=== PATIENT | female | born 1990 | race American Indian/Alaskan Native ===

== ENCOUNTER 2020-03-07 06:09 | Emergency (ER) | payer MEDICARE ==
[2020-03-07 06:40] VITALS: BP 115/80
[2020-03-07 07:10] LABS: Bacteria,Urine 1+ /HPF (Negative); Bilirubin,Urine NEG (Negative); Blood,Urine NEG (Negative); Color,Urine Yellow (Yellow); Mucus,Urine 1+ /HPF; Protein,Urine <15 mg/dL mg/dL (Negative); Urobilinogen,Urine < 2.0 mg/dL (<2.0)
[2020-03-07 07:11] LABS: HCG Qualitative,Urine Negative (Negative)
--- NOTE | 2020-03-07 07:34 | Emergency Department Report ---
ED Abdominal Pain HPI - General Chief Complaint: Abdominal Pain Stated Complaint: ABD PAIN Time Seen by Provider: 03/07/20 07:26 Source: patient Mode of arrival: Ambulatory Limitations: No Limitations - History of Present Illness Initial Comments: 29-year-old female with no significant past medical history presents to the hospital with complaints of lower abdominal pain x1 week. Patient having intermittent supra cramping abdominal pain without aggravating or alleviating factors. Pain 610 at its worst. Patient denies associated symptoms including nausea, vomiting, diarrhea, fever, dysuria, or vaginal bleeding. She did have some mild vaginal discharge that has improved. She is 62 active with one partner, no condom use, last sexual intercourse was last night. - Related Data Previous Rx's Medication Instructions Recorded Last Taken Type Ibuprofen [Motrin] 800 mg PO Q8HR PRN #20 tablet 03/07/20 Unknown Rx Allergies Allergy/AdvReac Type Severity Reaction Status Date / Time No Known Allergies Allergy Unverified 03/07/20 06:48 ED Review of Systems ROS: Stated complaint: ABD PAIN Other details as noted in HPI Comment: All other systems reviewed and negative ED Past Medical Hx - Past Medical History Previous Medical History?: No - Surgical History Past Surgical History?: No - Social History Smoking Status: Never Smoker Substance Use Type: None - Medications Home Medications: Home Medications Medication Instructions Recorded Confirmed Last Taken Type Ibuprofen [Motrin] 800 mg PO Q8HR PRN #20 tablet 03/07/20 Unknown Rx ED Physical Exam - General Limitations: No Limitations - Other Other exam information: General: No acute distress Head: Atraumatic Eyes: normal appearance ENT: Moist mucous membranes Neck: Normal appearance, no midline tenderness Chest: Clear to auscultation bilaterally CV: Regular rate and rhythm Abdomen: Soft, normal bowel sounds, mild superpubic tenderness, nondistended, no rebound or guarding : No external lesions, no vaginal discharge, nulliparous cervix, no CVA or adnexal tenderness, cultures obtained and sent Back: Normal inspection Extremity: Normal inspection, full range of motion Neuro: Alert O x 3, no facial asymmetry, speech clear, no gross motor sensory deficit Psych: Appropriate behavior Skin: No rash ED Course Vital Signs 03/07/20 06:36 Temperature 98.5 F Pulse Rate 84 Respiratory 18 Rate Blood Pressure 115/80 O2 Sat by Pulse 98 Oximetry ED Medical Decision Making - Lab Data Lab Results 03/07/20 Range/Units Unknown Urine Color Yellow (Yellow) Urine Turbidity Clear (Clear) Urine pH 6.0 (5.0-7.0) Ur Specific [place] 1.027 (1.003-1.030) Urine Protein <15 mg/dl (Negative) mg/dL Urine Glucose (UA) Neg (Negative) mg/dL Urine Ketones Neg (Negative) mg/dL Urine Blood Neg (Negative) Urine Nitrite Neg (Negative) Urine Bilirubin Neg (Negative) Urine Urobilinogen < 2.0 (<2.0) mg/dL Ur Leukocyte Esterase Neg (Negative) Urine WBC (Auto) 2.0 (0.0-6.0) /HPF Urine RBC (Auto) 1.0 (0.0-6.0) /HPF U Epithel Cells (Auto) 4.0 (0-13.0) /HPF Urine Bacteria (Auto) 1+ (Negative) /HPF Urine Mucus 1+ /HPF Urine HCG, Qual Negative (Negative) Gonorrhea, chlamydia, trichomonas negative - Medical Decision Making Patient presents with 1 week of intermittent crampy suprapubic abdominal pain without distress in the ED. Minimum suprapubic pain on examination. Vital signs, UA, urine , and vaginal exam unremarkable. GC chlamydia pending however, patient is in a monogamous relationship. Patient recommend to follow- up with [facility] for further work-up and evaluation since she is not current with her Pap smears as well Critical Care Time: No Critical care attestation.: If time is entered above; I have spent that time in minutes in the direct care of this critically ill patient, excluding procedure time. ED Disposition Clinical Impression: Pelvic pain Disposition: DC-01 TO HOME OR SELFCARE Is pt being admited?: No Does the pt Need Aspirin: No Condition: Stable Instructions: Abdominal Pain (ED), Pelvic Pain, Female, [id number] Additional Instructions: Take the medication as prescribed. Follow-up with your doctor or doctor/clinic provided. Return if symptoms worsen as indicated by your discharge instructions. Your gonorrhea and Chlamydia tests have been sent and take 2-3 days to result. You may obtain your results by going to medical records with your photo ID or your follow-up physician may request the results be sent to his or her office with your written permission. Prescriptions: Ibuprofen [Motrin] 800 mg PO Q8HR PRN #20 tablet PRN Reason: Pain , Severe (7-10) Referrals: PRIMARY CARE, [Primary Care Provider] - 3-5 Days [facility] [Provider Group] - 3-5 Days Time of Disposition: 08:31
== END 2020-03-07 09:06 | disposition home or self-care (01) ==
LOC: ED 06:09
DX: R10.2 Pelvic and perineal pain (principal); Z79.1 Long term (current) use of non-steroidal anti-inflammatories (NSAID)
CPT/HCPCS: 81001; 81025; 87210; 87591

== ENCOUNTER 2021-03-02 08:26 | Emergency (ER) | payer MEDICARE ==
[2021-03-02 10:54] LABS: Basophils % (Auto) 0.5 % (0.0-1.8); Eosinophils % (Auto) 0.1 % (0.0-4.3); Hematocrit 40.9 % (30.3-42.9); Hemoglobin 13.2 gm/dl (10.1-14.3); Lymphocytes # (Auto) 0.8 K/mm3 (1.2-5.4); Lymphocytes % (Auto) 25.3 % (13.4-35.0); Mean Corpuscular HGB Conc 32 % (30-34); Mean Corpuscular Volume 84 fl (79-97); Monocytes # (Auto) 0.3 K/mm3 (0.0-0.8); Monocytes % (Auto) 8.5 % (0.0-7.3); Platelet Count 226 K/mm3 (140-440); Red Blood Count 4.87 M/mm3 (3.65-5.03); Red Cell Distribution Width 14.9 % (13.2-15.2)
[2021-03-02 11:03] LABS: BUN/Creatinine Ratio 10; Blood Urea Nitrogen 8 mg/dL (7-17); Hemolysis Index 10
[2021-03-02 11:16] VITALS: BP 111/75
--- NOTE | 2021-03-02 11:19 | Emergency Department Report ---
ED General Adult HPI - General Chief complaint: Weakness Stated complaint: DONT FEEL GOOD Time Seen by Provider: 03/02/21 09:22 Source: patient Mode of arrival: Ambulatory Limitations: No Limitations - History of Present Illness Initial comments: 30-year-old -Gabonese female presents to the emergency room stating she just does not feel good x1 week. She denies any fever admits to chills no nausea no vomiting. She does report a decrease in appetite and a cough. She states that she took an ibuprofen on Tuesday. She is not vaccinated for Covid but states she is got vaccinated for flu. She denies any chest pain or shortness of breath. She reports she has been around someone's been sick which is her boyfriend. She denies any sore throat no nasal congestion or runny nose no headache. She just states she feels weak and does not feel good. She denies any past medical history currently takes no meds. Her last menstrual period is 02/22/2021 and is currently on her cycle. Onset/Timin -: week(s) Severity scale (0 -10): 4 Quality: other (Just does not feel good) Consistency: constant Improves with: none Worsens with: movement Associated Symptoms: cough, loss of appetite, malaise. denies: confusion, chest pain, diaphoresis, fever/chills, headaches, nausea/vomiting Treatments Prior to Arrival: none - Related Data Previous Rx's Medication Instructions Recorded Last Taken Type Ibuprofen [Motrin] 800 mg PO Q8HR PRN #20 tablet 03/07/20 Unknown Rx Allergies Allergy/AdvReac Type Severity Reaction Status Date / Time No Known Allergies Allergy Verified 03/02/21 08:34 ED Review of Systems ROS: Stated complaint: DONT FEEL GOOD Other details as noted in HPI Comment: All other systems reviewed and negative ED Past Medical Hx - Social History Smoking Status: Never Smoker Substance Use Type: None - Medications Home Medications: Home Medications Medication Instructions Recorded Confirmed Last Taken Type Ibuprofen [Motrin] 800 mg PO Q8HR PRN #20 tablet 03/07/20 Unknown Rx ED Physical Exam - General Limitations: No Limitations General appearance: alert, in no apparent distress - Head Head exam: Present: atraumatic, normocephalic - Eye Eye exam: Present: normal appearance - ENT ENT exam: Present: mucous membranes moist - Neck Neck exam: Present: normal inspection - Respiratory Respiratory exam: Present: normal lung sounds bilaterally. Absent: respiratory distress - Cardiovascular Cardiovascular Exam: Present: regular rate, normal rhythm. Absent: systolic murmur, diastolic murmur, rubs, gallop - GI/Abdominal GI/Abdominal exam: Present: soft, normal bowel sounds - Extremities Exam Extremities exam: Present: normal inspection - Back Exam Back exam: Present: normal inspection - Neurological Exam Neurological exam: Present: alert, oriented X3 - Psychiatric Psychiatric exam: Present: normal affect, normal mood - Skin Skin exam: Present: warm, dry, intact, normal color. Absent: rash ED Course Vital Signs 03/02/21 08:33 Temperature 98.5 F Pulse Rate 100 H Respiratory 18 Rate Blood Pressure 111/75 O2 Sat by Pulse 96 Oximetry ED Medical Decision Making - Lab Data Result diagrams: 03/02/21 10:16 03/02/21 10:16 - Radiology Data Radiology results: report reviewed Study Comments [facility] [address] [place] [address] XRay Report Signed Patient: ESTER BOLIVAR MR#: [id number] : 1990 Acct:[id number] Age/Sex: 30 / F ADM Date: 03/02/21 Loc: ED Attending Dr: Ordering Physician: JAMES CRUZ Date of Service: 03/02/21 Procedure(s): XR chest routine 2V Accession Number(s): [id number] cc: JAMES CRUZ Fluoro Time In Minutes: CHEST 2 VIEWS INDICATION / CLINICAL INFORMATION: cough. COMPARISON: None available. FINDINGS: SUPPORT DEVICES: None. HEART / MEDIASTINUM: No significant abnormality. LUNGS / PLEURA: No significant pulmonary abnormality. No significant pleural effusion. No pneumothorax. ADDITIONAL FINDINGS: No significant additional findings. IMPRESSION: 1. No acute abnormality of the chest. Signer Name: Donaldo Duarte MD Signed: 03/02/2021 12:36 PM Workstation Name: [id number] Transcribed By: DEVANTE Dictated By: Donaldo Duarte MD Electronically Authenticated By: Donaldo Duarte MD Signed Date/Time: 03/02/21 1236 DD/ 1236 TD/TT: - Medical Decision Making 30-year-old -[place]ones[place] female presents to the emergency room stating she just does not feel good x1 week. She denies any fever admits to chills no nausea no vomiting. She does report a decrease in appetite and a cough. She states that she took an ibuprofen on Tuesday. She is not vaccinated for Covid but states she is got vaccinated for flu. She denies any chest pain or shortness of breath. She reports she has been around someone's been sick which is her boyfriend. She denies any sore throat no nasal congestion or runny nose no headache. She just states she feels weak and does not feel good. She denies any past medical history currently takes no meds. Her last menstrual period is 02/22/2021 and is currently on her cycle. CBC CMP hCG chest x-ray. Labs are stable negative test chest x-ray shows no acute abnormalities. Discussed with patient I recommend for her to go get Covid testing. Critical care attestation.: If time is entered above; I have spent that time in minutes in the direct care of this critically ill patient, excluding procedure time. ED Disposition Clinical Impression: Suspected COVID-19 virus infection Disposition: HOME / SELF CARE / HOMELESS Is pt being admited?: No Does the pt Need Aspirin: No Condition: Stable Instructions: COVID-19: How to Protect Yourself and Others - CDC, Prevent the Spread of COVID-19 if You Are Sick - CDC Additional Instructions: Your symptoms appear most consistent with a nonspecific viral syndrome. However, given this current pandemic, COVID-19 is in the differential of possibilities. Despite your previous negative COVID-19 test, I do recommend repeat outpatient Covid 19 testing. In the meantime, isolate/quarantine yourself and stay away from anyone who is elderly, immunocompromised or chronically ill. You can use ibuprofen every 6-8 hours and Tylenol every 4-8 hours, using the dosing on the back of the bottle, as needed for any fever or body aches. Return to the emergency department with any worsening of your symptoms, development of chest pain or shortness of breath, or with any acute distress. Labs are stable chest x-ray is negative for any acute findings. I recommend Covid testing. Increase your fluids follow-up with your primary care provider. Referrals: PRIMARY MD ERIC [Primary Care Provider] - 3-5 Days ALISHA PRESTON MD [Staff Physician] - 3-5 Days Forms: Work/School Release Form(ED) Time of Disposition: 13:04
--- NOTE | 2021-03-02 12:40 | XRay Report ---
CHEST 2 VIEWS INDICATION / CLINICAL INFORMATION: cough. COMPARISON: None available. FINDINGS: SUPPORT DEVICES: None. HEART / MEDIASTINUM: No significant abnormality. LUNGS / PLEURA: No significant pulmonary abnormality. No significant pleural effusion. No pneumothora x. ADDITIONAL FINDINGS: No significant additional findings. IMPRESSION: 1. No acute abnormality of the chest. Signer Name: Donaldo Duarte MD Signed: 03/02/2021 12:36 PM Workstation Name: [id number]
== END 2021-03-02 13:20 | disposition home or self-care (01) ==
LOC: ED 08:26
DX: R05.9 Cough, unspecified (principal); Z20.822 Contact with and (suspected) exposure to COVID-19
CPT/HCPCS: 36415; 71046; 80048; 84702; 85025; 99283

== ENCOUNTER 2021-11-29 13:40 | Emergency (ER) | payer SELFPAY ==
[2021-11-29 15:36] VITALS: BP 133/90
== END 2021-11-29 18:46 | disposition left against medical advice (07) ==
LOC: ED 13:40
DX: R10.9 Unspecified abdominal pain (principal); Z53.21 Procedure and treatment not carried out due to patient leaving prior to being seen by health care provider